=== PATIENT | male | born 1970 | race Caucasian/White ===

== ENCOUNTER → 2018-01-08 | Outpatient (CLI) | payer MEDICARE | END | disposition home or self-care (01) | LOC: KCIC 09:28 | DX: J45.909 Unspecified asthma, uncomplicated (principal) | CPT/HCPCS: 71046 ==

== ENCOUNTER → 2018-04-10 | Outpatient (CLI) | payer MEDICARE | END | disposition home or self-care (01) | LOC: KCIC 09:27 | DX: M25.551 Pain in right hip (principal); J45.909 Unspecified asthma, uncomplicated | CPT/HCPCS: 73502 ==

== ENCOUNTER 2019-01-30 18:42 | Emergency (ER) | payer MEDICARE ==
[~2019-01-30] VITALS: Ht 177.8 cm; Wt 143.8 kg
[2019-01-30] MEDS ORDERED: IV NORMAL SALINE 1000ML BAG 1,000 ML IV ONE (19:15)
[2019-01-30] MEDS ORDERED: ATROVENT HFA12.9 GM IH (19:44)
[2019-01-30 19:45] LABS: BASO # 0.1 x10^3/uL (0.0-0.2); BASO % 1 % (0-3); EOS # 0.1 x10^3/uL (0.0-0.7); EOS % 1 % (0-3); HEMATOCRIT 38.8 % (39.0-53.0); HEMOGLOBIN 13.1 g/dL (13.0-17.5); LYMPH # 1.8 x10^3/uL (1.0-4.8); LYMPH % 21 % (24-48); MEAN CORPUSCULAR HEMOGLOBIN 31 pg (25-35); MEAN CORPUSCULAR HGB CONC 34 g/dL (31-37); MEAN CORPUSCULAR VOLUME 92 fL (79-100); MONO # 0.7 x10^3/uL (0.0-1.1); MONO % 9 % (0-9); NEUT # 6.1 x10^3uL (1.8-7.7); NEUT % 69 % (31-73); PLATELET COUNT 283 x10^3/uL (140-400); RED BLOOD COUNT 4.22 x10^6/uL (4.30-5.70); RED CELL DISTRIBUTION WIDTH 13.8 % (11.5-14.5); WHITE BLOOD COUNT 8.8 x10^3/uL (4.0-11.0)
[2019-01-30 19:54] LABS: ANION GAP 12 (6-14); BLOOD UREA NITROGEN 21 mg/dL (8-26); BUN/CREATININE RATIO 6 (6-20); CALCIUM 9.2 mg/dL (8.5-10.1); CARBON DIOXIDE 27 mmol/L (21-32); CHLORIDE 101 mmol/L (98-107); CREATININE 3.6 mg/dL (0.7-1.3); GFR 18.3; GLUCOSE 113 mg/dL (70-99); POTASSIUM 3.5 mmol/L (3.5-5.1); SODIUM 140 mmol/L (136-145)
[2019-01-30 20:00] LABS: ALBUMIN 3.7 g/dL (3.4-5.0); ALBUMIN/GLOBULIN RATIO 0.9 (1.0-1.7); ALK PHOS 126 U/L (46-116); ALT (SGPT) 11 U/L (16-63); AST (SGOT) 19 U/L (15-37); MAGNESIUM 2.3 mg/dL (1.8-2.4); TOTAL BILIRUBIN 0.4 mg/dL (0.2-1.0); TOTAL PROTEIN 7.9 g/dL (6.4-8.2)
[2019-01-30 20:01] LABS: CARBAM < 0.5 mcg/mL (4.0-12.0)
--- NOTE | 2019-01-30 20:17 | RAD ---
EXAM: CT Head without IV contrast CLINICAL HISTORY: tremors,Weakness COMPARISON: None. TECHNIQUE: Routine CT of the head without contrast. Soft tissues and bone windows were reviewed. PQRS compliance statement - One or more of the following individualized dose reduction techniques were utilized for this study: 1. Automated exposure control 2. Adjustment of the mA and/or kV according to patient size 3. Use of iterative reconstruction technique FINDINGS: There is no evidence of hemorrhage, mass or extra-axial fluid collection. Douglas-white differentiation is maintained with no evidence of edema. There is no mass effect or shift of the intracranial structures. The ventricles, basilar cisterns and cortical sulci are normal in size and configuration for the patients stated age. The cerebellum and brainstem are unremarkable. The calvarium demonstrates no evidence of fracture or focal lesion. The mastoid air cells are clear. Diffuse opacification of the right maxillary sinus. The visualized portions of the orbits are normal. IMPRESSION: 1. No evidence for acute intracranial process. 2. Diffuse opacification of the right maxillary sinus, likely sinusitis. Electronically signed by: Levy Murillo MD (01/30/2019 8:14 PM) [email or web address]
--- NOTE | 2019-01-30 20:22 | PHYS DOC ---
Past Medical History Past Medical History: COPD, Diabetes-Type II, Hypertension, Seizure, Other Past Surgical History: No Surgical History Alcohol Use: None Drug Use: None Adult General Chief Complaint Chief Complaint: TREMORS HPI HPI Patient is a 48 year old [f__sex] who presents with [] Review of Systems Review of Systems Constitutional: Denies fever or chills [] Eyes: Denies change in visual acuity, redness, or eye pain [] HENT: Denies nasal congestion or sore throat [] Respiratory: Denies cough or shortness of breath [] Cardiovascular: No additional information not addressed in HPI [] GI: Denies abdominal pain, nausea, vomiting, bloody stools or diarrhea [] : Denies dysuria or hematuria [] Musculoskeletal: Denies back pain or joint pain [] Integument: Denies rash or skin lesions [] Neurologic: Denies headache, focal weakness or sensory changes [] Endocrine: Denies polyuria or polydipsia [] All other systems were reviewed and found to be within normal limits, except as documented in this note. Current Medications Current Medications Current Medications Medications (Trade) Dose Ordered Sig/Aaron Start Time Stop Time Status Last Admin Dose Admin Lorazepam (Ativan Inj) 0.5 mg 1X ONCE 01/30/19 21:15 01/30/19 21:16 DC 01/30/19 21:22 0.5 MG Lorazepam (Ativan) 0.5 mg 1X ONCE 01/30/19 23:00 01/30/19 23:01 DC 01/30/19 23:39 0.5 MG Sodium Chloride 1,000 ml @ 1,000 mls/hr 1X ONCE 01/30/19 19:15 01/30/19 20:14 DC 01/30/19 19:15 1,000 MLS/HR Allergies Allergies Allergies Coded Allergies Type Severity Reaction Last Updated Verified No Known Drug Allergies 01/30/19 No Physical Exam Physical Exam Constitutional: Well developed, well nourished, no acute distress, non-toxic appearance. [] HENT: Normocephalic, atraumatic, bilateral external ears normal, oropharynx moist, no oral exudates, nose normal. [] Eyes: PERRLA, EOMI, conjunctiva normal, no discharge. [] Neck: Normal range of motion, no tenderness, supple, no stridor. [] Cardiovascular:Heart rate regular rhythm, no murmur [] Lungs & Thorax: Bilateral breath sounds clear to auscultation [] Abdomen: Bowel sounds normal, soft, no tenderness, no masses, no pulsatile masses. [] Skin: Warm, dry, no erythema, no rash. [] Back: No tenderness, no CVA tenderness. [] Extremities: No tenderness, no cyanosis, no clubbing, ROM intact, no edema. [] Neurologic: Alert and oriented X 3, normal motor function, normal sensory function, no focal deficits noted. [] Psychologic: Affect normal, judgement normal, mood normal. [] Current Patient Data Vital Signs Vital Signs Date Time Temp Pulse Resp B/P (MAP) Pulse Ox O2 Delivery O2 Flow Rate FiO2 01/30/19 23:07 106 189/96 (127) 96 Room Air 01/30/19 22:30 18 01/30/19 21:00 98.2 98.2 Lab Values Laboratory Tests Test 01/30/19 19:05 01/30/19 21:20 White Blood Count 8.8 x10^3/uL (4.0-11.0) Red Blood Count 4.22 x10^6/uL (4.30-5.70) L Hemoglobin 13.1 g/dL (13.0-17.5) Hematocrit 38.8 % (39.0-53.0) L Mean Corpuscular Volume 92 fL (79-100) Mean Corpuscular Hemoglobin 31 pg (25-35) Mean Corpuscular Hemoglobin Concent 34 g/dL (31-37) Red Cell Distribution Width 13.8 % (11.5-14.5) Platelet Count 283 x10^3/uL (140-400) Neutrophils (%) (Auto) 69 % (31-73) Lymphocytes (%) (Auto) 21 % (24-48) L Monocytes (%) (Auto) 9 % (0-9) Eosinophils (%) (Auto) 1 % (0-3) Basophils (%) (Auto) 1 % (0-3) Neutrophils # (Auto) 6.1 x10^3uL (1.8-7.7) Lymphocytes # (Auto) 1.8 x10^3/uL (1.0-4.8) Monocytes # (Auto) 0.7 x10^3/uL (0.0-1.1) Eosinophils # (Auto) 0.1 x10^3/uL (0.0-0.7) Basophils # (Auto) 0.1 x10^3/uL (0.0-0.2) Sodium Level 140 mmol/L (136-145) Potassium Level 3.5 mmol/L (3.5-5.1) Chloride Level 101 mmol/L (98-107) Carbon Dioxide Level 27 mmol/L (21-32) Anion Gap 12 (6-14) Blood Urea Nitrogen 21 mg/dL (8-26) Creatinine 3.6 mg/dL (0.7-1.3) H Estimated GFR (Cockcroft-Gault) 18.3 BUN/Creatinine Ratio 6 (6-20) Glucose Level 113 mg/dL (70-99) H Lactic Acid Level 3.4 mmol/L (0.4-2.0) H Calcium Level 9.2 mg/dL (8.5-10.1) Magnesium Level 2.3 mg/dL (1.8-2.4) Total Bilirubin 0.4 mg/dL (0.2-1.0) Aspartate Amino Transferase (AST) 19 U/L (15-37) Alanine Aminotransferase (ALT) 11 U/L (16-63) L Alkaline Phosphatase 126 U/L (46-116) H Creatine Kinase 386 U/L (39-308) H Creatine Kinase MB (Mass) 2.0 ng/mL (0.0-3.6) Creatine Kinase MB Relative Index 0.5 % (0-4) Troponin I Quantitative < 0.017 ng/mL (0.000-0.055) Total Protein 7.9 g/dL (6.4-8.2) Albumin 3.7 g/dL (3.4-5.0) Albumin/Globulin Ratio 0.9 (1.0-1.7) L Carbamazepine (Tegretol) Level < 0.5 mcg/mL (4.0-12.0) L Carbamazepine Last Dose Date Unknown Carbamazepine Last Dose Time Unknown Urine Collection Type Unknown Urine Color [place] Urine Clarity Clear Urine pH 5.0 Urine Specific [place] 1.025 Urine Protein 30 mg/dL (NEG-TRACE) Urine Glucose (UA) Negative mg/dL (NEG) Urine Ketones (Stick) Trace mg/dL (NEG) Urine Blood Negative (NEG) Urine Nitrite Negative (NEG) Urine Bilirubin Small (NEG) Urine Urobilinogen Dipstick 0.2 mg/dL (0.2 mg/dL) Urine Leukocyte Esterase Negative (NEG) Urine RBC Occ /HPF (0-2) Urine WBC 1-4 /HPF (0-4) Urine Transitional Epithelial Cells Occ /LPF Urine Amorphous Sediment Present /HPF Urine Bacteria Few /HPF (0-FEW) Urine Hyaline Casts Many /HPF Urine Mucus Marked /LPF Laboratory Tests 01/30/19 19:05 Laboratory Tests 01/30/19 19:05 EKG EKG @1931 Sinus tachycardia at 114bpm, baseline artifact noted, NO ST elevation Radiology/Procedures Radiology/Procedures PROCEDURE: CT HEAD WO CONTRAST EXAM: CT Head without IV contrast CLINICAL HISTORY: tremors,Weakness COMPARISON: None. TECHNIQUE: Routine CT of the head without contrast. Soft tissues and bone windows were reviewed. PQRS compliance statement - One or more of the following individualized dose reduction techniques were utilized for this study: 1. Automated exposure control 2. Adjustment of the mA and/or kV according to patient size 3. Use of iterative reconstruction technique FINDINGS: There is no evidence of hemorrhage, mass or extra-axial fluid collection. Douglas-white differentiation is maintained with no evidence of edema. There is no mass effect or shift of the intracranial structures. The ventricles, basilar cisterns and cortical sulci are normal in size and configuration for the patients stated age. The cerebellum and brainstem are unremarkable. The calvarium demonstrates no evidence of fracture or focal lesion. The mastoid air cells are clear. Diffuse opacification of the right maxillary sinus. The visualized portions of the orbits are normal. IMPRESSION: 1. No evidence for acute intracranial process. 2. Diffuse opacification of the right maxillary sinus, likely sinusitis. Electronically signed by: Levy Murillo MD (01/30/2019 8:14 PM) [facility] Course & Med Decision Making Course & Med Decision Making Pertinent Labs and Imaging studies reviewed. (See chart for details) [] Dragon Disclaimer Dragon Disclaimer This electronic medical record was generated, in whole or in part, using a voice recognition dictation system. Departure Departure Impression: Primary Impression: Tremor Disposition: 01 HOME, SELF-CARE Condition: IMPROVED Referrals: UNKNOWN PCP NAME (PCP) Patient Instructions: Parkinson's Disease, [id number], Tremor Additional Instructions: Please follow up closely with your neurologist for re-evaluation. Scripts Lorazepam (ATIVAN) 0.5 Mg Tablet 0.5 MG PO TID PRN for TREMORS, #20 TAB Prov: LEVI LU DO 01/30/19 LEVI LU DO January 30, 2019 20:22
[2019-01-30 21:32] LABS: BILIRUBIN,URINE SMALL (NEG); CLARITY,URINE CLEAR; COLOR,URINE AMBER; NITRITE,URINE NEGATIVE (NEG); PROTEIN,URINE 30 mg/dL (NEG-TRACE); UROBILINOGEN,URINE 0.2 mg/dL (0.2 mg/dL)
[2019-01-30 21:38] LABS: HYALINE CASTS, URINE MANY /HPF
[2019-01-30 21:40] LABS: AMORPHOUS SEDIMENT,UR PRESENT /HPF; BACTERIA,URINE FEW /HPF (0-FEW); RBC,URINE OCC /HPF (0-2)
[2019-01-30] MEDS ORDERED: LORA0.5T96 PO (22:37)
[2019-01-30] MEDS ORDERED: LORazepam 0.5 MG TABLET PO ONE (23:00)
[2019-01-30 23:07] VITALS: BP 189/96
--- NOTE | 2019-01-31 14:28 | EKG ---
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
== END 2019-01-30 23:48 | disposition home or self-care (01) ==
LOC: ER 18:42
DX: R25.1 Tremor, unspecified (principal); J44.9 Chronic obstructive pulmonary disease, unspecified; E11.9 Type 2 diabetes mellitus without complications; I10 Essential (primary) hypertension
CPT/HCPCS: 36415; 70450; 80053; 80156; 81001; 82553; 83605; 83735; 84484; 85025; 93005; 96374; 99285; J2060; J7030

== ENCOUNTER → 2021-05-09 | Outpatient (CLI) | payer MEDICARE ==
[~2021-05-09] MED LIST: ATROVENT HFA12.9 GM IH; LORA0.5T96 PO
--- NOTE | 2021-05-09 10:57 | KCIC ---
EXAM: Pelvis and right hip, 2 views. HISTORY: Pain. COMPARISON: 04/10/2018 FINDINGS: A frontal view of the pelvis and frog-leg view the right hip are obtained. There is no frac ture, dislocation or subluxation. There is degenerative change at the lumbosacral junction. There is slight decreased right femoral head-neck offset, a finding which can be seen with chronic hip impinge ment. IMPRESSION: No acute osseous finding. Slight decreased right femoral head neck offset, a finding whic h can be seen with chronic hip impingement. Electronically signed by: Jojo Núñez MD (05/09/2021 10:55 AM) [id number]
== END ==
LOC: KCIC 10:18
PROVIDERS: ATTEND Family Medicine
DX: M25.551 Pain in right hip (principal); M47.817 Spondylosis without myelopathy or radiculopathy, lumbosacral region
CPT/HCPCS: 73501

== ENCOUNTER 2021-08-20 20:20 | Emergency (ER) | payer MEDICARE ==
[~2021-08-20] VITALS: Ht 177.8 cm; Wt 163.6 kg
--- NOTE | 2021-08-20 23:47 | PHYS DOC ---
Past Medical History Past Medical History: COPD, Diabetes-Type II, Hypertension, Seizure, Other Past Surgical History: No Surgical History Smoking Status: Never Smoker Alcohol Use: None Drug Use: None General Adult EDM: Chief Complaint: DIZZY/LIGHT HEADED HPI: HPI: Patient is a 51 year old male who reports dizziness which began at 6 PM. He describes both lightheadedness as well as some sense of motion. He reports that his hearing is "funny." He has some chronic hearing loss at baseline. Denies tinnitus. He denies fall or head injury. He denies headache. He denies numbness or tingling or focal motor weakness. He has chronic motor weakness and tremors secondary to Parkinson disease. No acute changes reported today. He denies chest pain, abdominal pain, nausea or vomiting. He does report some mild dyspnea and dry cough, which also began today. He denies fevers or chills. He denies hemoptysis. Denies dyspnea on exertion. Chronic lower extremity edema, unchanged today. Denies recent travel, surgery or hospitalization. He has been fully vaccinated against Covid. He reports that he is anxious but possibly having Covid. Review of Systems: Review of Systems: Constitutional: Denies fever or chills. [] Eyes: Denies acute change in visual acuity. Chronically poor vision. HENT: Denies nasal congestion or sore throat. [] Respiratory: Reports dyspnea and mild dry cough. Cardiovascular: Denies chest pain. Bilateral lower extremity edema reported. GI: Denies abdominal pain, nausea, vomiting Musculoskeletal: Denies back pain or joint pain. [] Integument: Denies rash. [] Neurologic: Denies headache, focal weakness or sensory changes. Chronic tremor and unsteadiness secondary to Parkinson disease. Psychiatric: Denies depression or anxiety. [] Heart Score: C/O Chest Pain: No Risk Factors: Risk Factors: DM, Current or recent (<one month) smoker, HTN, HLP, family history of CAD, obesity. Risk Scores: Score 0 - 3: 2.5% MACE over next 6 weeks - Discharge Home Score 4 - 6: 20.3% MACE over next 6 weeks - Admit for Clinical Observation Score 7 - 10: 72.7% MACE over next 6 weeks - Early Invasive Strategies Allergies: Allergies: Allergies Coded Allergies Type Severity Reaction Last Updated Verified No Known Drug Allergies 01/30/19 No Physical Exam: PE: Constitutional: Well developed, well nourished, no acute distress, non-toxic appearance. Chronically ill-appearing. Appears older than stated age HENT: Normocephalic, atraumatic, bilateral external ears normal, oropharynx mois t, no oral exudates, nose normal. TMs are clear bilaterally. Eyes: PERRL, EOMI, conjunctiva normal, no discharge. No nystagmus. Neck: Normal range of motion, no tenderness, supple, no stridor. Trachea midline. Cardiovascular: Tachycardic, rate in the low 100s, regular, +2 posterior tibial and +2 radial pulses bilaterally. Lungs & Thorax: Bilateral breath sounds clear to auscultation, no rales, rhonchi or wheezing. No stridor. No distress. Abdomen: Abdomen soft, nondistended, nontender to palpation. Skin: Warm, dry, no erythema. There is some mild venous stasis skin changes on his lower extremities. Back: No formally. Extremities: No tenderness, no cyanosis, no clubbing, ROM intact. Bilateral lower extremity 1+ pitting edema. No calf tenderness. No limb deformity. Neurologic: Alert and oriented X 3, normal motor function, normal sensory function, no focal deficits noted. Cranial nerves II through XII grossly intact. Speech is clear and fluent. 5 out of 5 motor strength all 4 extremities. No limb ataxia. There is a subtle baseline tremor, worse on the upper extremities. Psychologic: Affect normal, judgement normal, mood normal. [] EKG: EKG: EKG is interpreted at 0003 Rhythm is sinus Rate is 100 bpm Low voltage Marked artifact No STEMI Radiology/Procedures: Radiology/Procedures: IMAGING REPORT Signed PATIENT: JOSE ROBERTO PANIAGUA ACCOUNT: [id number] : 1970 LOCATION: ER AGE: 51 SEX: M EXAM STATUS: REG ER ORD. PHYSICIAN: VICTOR HUGO COON DO REASON: dizziness PROCEDURE: CT HEAD WO CONTRAST CT HEAD/BRAIN WO Date: 08/21/2021 12:49 AM Clinical Indication: dizziness Comparison: None. Technique: 5 mm axial tomographic images were obtained of the head without contrast. These were viewed on brain and bone windows. One or more of the following dose reduction techniques were utilized: Automated exposure control (AEC), Adjustment of mA and/or kV according to patient size, Use of iterative reconstruction technique such as ASiR, CT scan done according to ALARA and image gently/image wisely Findings: The brain parenchyma is normal in attenuation. No intra- or extra-axial mass or fluid collection. No acute hemorrhage. The ventricles are normal in size, shape, and morphology. The bansal-white matter junction is normal. The subarachnoid cisterns are patent. Opacification of the right maxillary sinus, which is small in caliber with inward bowing of the last consistent with atelectasis. The visualized portions of the orbits and globes are normal. The mastoid air cells are clear. The sales support administrator topogram shows no lytic lesion or fracture. Impression: 1. No acute intracranial process. 2. Right maxillary sinus chronic atelectasis. Electronically signed by: Erica Johnson MD (08/21/2021 1:08 AM) [facility] DICTATED and SIGNED BY: ERICA JOHNSON MD DATE: 08/21/[id number] 0 IMAGING REPORT Signed PATIENT: JOSE ROBERTO PANIAGUA ACCOUNT: [id number] : 1970 LOCATION: ER AGE: 51 SEX: M EXAM STATUS: REG ER ORD. PHYSICIAN: VICTOR HUGO COON DO REASON: dyspnea PROCEDURE: PORTABLE CHEST 1V XR CHEST 1V INDICATION: dyspnea COMPARISON STUDY: 01/08/2018. FINDINGS: Lungs: Normal lung volume. No pulmonary mass or consolidation. Prominent mediastinal fat. Pleura: No pleural effusion or pneumothorax. Heart and Mediastinum: Cardiomegaly. The great vessels of the thorax are normal. IMPRESSION: No acute cardiopulmonary process. Electronically signed by: Erica Johnson MD (08/21/2021 1:14 AM) [facility] DICTATED and SIGNED BY: ERICA JOHNSON MD DATE: 08/21/21 [id number] Course & Med Decision Making: Course & Med Decision Making Pertinent Labs and Imaging studies reviewed. (See chart for details) The findings, differential diagnosis and plan of care discussed with the patient. Emergency department work-up is unremarkable for any acute life- threatening process. No current indication for further invasive exams, imaging or admission at this time, based on current clinical presentation. He manifests no evidence of respiratory distress or hypoxia. He feels comfortable with plan for discharge home. I told him to follow-up with his neurologist, Dr. Vargas at his schedule appointment later this month. He is to follow-up with his primary care physician as well. He denies any active vertigo or dizziness at present, he is able to get up and move around the emergency department, without difficulty. Dyspnea has resolved as well. Strict return precautions are given. Dragon Disclaimer: Dragon Disclaimer: This electronic medical record was generated, in whole or in part, using a voice recognition dictation system. Departure Departure Impression: Primary Impression: Dizziness Additional Impressions: Parkinson disease Dyspnea Disposition: HOME / SELF CARE / HOMELESS Condition: STABLE Referrals: ALEYDA DELAROSA MD (PCP) Patient Instructions: Dizziness, Shortness of Breath Additional Instructions: Return to the ER for severe headache, fall, head injury, numbness, tingling, focal or new motor weakness, chest pain, more severe shortness of breath, vomiting, dehydration, temperature 100.4 or higher or for any other concerns. Use the medication as prescribed/as needed for dizziness symptoms. Please keep your appointment with Dr. Vargas on the of this month, as scheduled. Also follow-up with your primary care physician. Scripts Meclizine Hcl (MECLIZINE HCL) 25 Mg Tablet 25 MG PO PRN TID PRN for dizziness or vertigo, #20 TAB dizziness Prov: VICTOR HUGO COON DO 08/21/21 VICTOR HUGO COON DO Aug 20, 2021 23:47
[2021-08-21 00:19] LABS: BASO # 0.1 x10^3/uL (0.0-0.2); BASO % 1 % (0-3); EOS % 1 % (0-3); HEMATOCRIT 37.2 % (39.0-53.0); HEMOGLOBIN 12.2 g/dL (13.0-17.5); LYMPH # 1.9 x10^3/uL (1.0-4.8); LYMPH % 25 % (24-48); MEAN CORPUSCULAR HEMOGLOBIN 31 pg (25-35); MEAN CORPUSCULAR HGB CONC 33 g/dL (31-37); MEAN CORPUSCULAR VOLUME 93 fL (79-100); MONO # 0.8 x10^3/uL (0.0-1.1); MONO % 10 % (0-9); NEUT % 64 % (31-73); PLATELET COUNT 231 x10^3/uL (140-400); RED CELL DISTRIBUTION WIDTH 14.2 % (11.5-14.5); WHITE BLOOD COUNT 7.8 x10^3/uL (4.0-11.0)
[2021-08-21 00:32] LABS: CALCIUM 8.3 mg/dL (8.5-10.1); CREATININE 2.8 mg/dL (0.7-1.3); GFR 24.2; POTASSIUM 3.8 mmol/L (3.5-5.1)
[2021-08-21 00:38] LABS: ALBUMIN 3.5 g/dL (3.4-5.0); ALBUMIN/GLOBULIN RATIO 0.8 (1.0-1.7); MAGNESIUM 2.4 mg/dL (1.8-2.4); PHOSPHORUS 4.6 mg/dL (2.6-4.7); TOTAL BILIRUBIN 0.4 mg/dL (0.2-1.0); TOTAL PROTEIN 7.7 g/dL (6.4-8.2)
--- NOTE | 2021-08-21 01:11 | RAD ---
CT HEAD/BRAIN WO Date: 08/21/2021 12:49 AM Clinical Indication: dizziness Comparison: None. Technique: 5 mm axial tomographic images were obtained of the head without contrast. These were view ed on brain and bone windows. One or more of the following dose reduction techniques were utilized: A utomated exposure control (AEC), Adjustment of mA and/or kV according to patient size, Use of iterati ve reconstruction technique such as ASiR, CT scan done according to ALARA and image gently/image cruz ly Findings: The brain parenchyma is normal in attenuation. No intra- or extra-axial mass or fluid collection. No acute hemorrhage. The ventricles are normal in size, shape, and morphology. The bansal-white matter david ction is normal. The subarachnoid cisterns are patent. Opacification of the right maxillary sinus, which is small in caliber with inward bowing of the last consistent with atelectasis. The visualized portions of the orbits and globes are normal. The masto id air cells are clear. The vice president integrated topogram shows no lytic lesion or fracture. Impression: 1. No acute intracranial process. 2. Right maxillary sinus chronic atelectasis. Electronically signed by: Khurram Johnson MD (08/21/2021 1:08 AM) [facility]
--- NOTE | 2021-08-21 01:16 | RAD ---
XR CHEST 1V INDICATION: dyspnea COMPARISON STUDY: 01/08/2018. FINDINGS: Lungs: Normal lung volume. No pulmonary mass or consolidation. Prominent mediastinal fat. Pleura: No pleural effusion or pneumothorax. Heart and Mediastinum: Cardiomegaly. The great vessels of the thorax are normal. IMPRESSION: No acute cardiopulmonary process. Electronically signed by: Khurram Johnson MD (08/21/2021 1:14 AM) [facility]
--- NOTE | 2021-08-21 02:56 | EKG ---
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
[2021-08-21 03:00] VITALS: BP 96/61
[2021-08-21] MEDS ORDERED: MECL-75 PO (03:01)
--- NOTE | 2021-08-21 16:03 | NUR ---
IP: Attempted to contact pt concerning covid results. No answer, left a voicemail to return the call.
--- NOTE | 2021-08-22 15:43 | NUR ---
IP: Attempted a second time to contact pt concerning covid test. No answer, left a second voicemail to return the call
== END 2021-08-21 03:09 | disposition home or self-care (01) ==
LOC: ER 20:20
DX: R42 Dizziness and giddiness (principal); R06.00 Dyspnea, unspecified; G20 Parkinson's disease; R05.9 Cough, unspecified; Z20.822 Contact with and (suspected) exposure to COVID-19; J44.9 Chronic obstructive pulmonary disease, unspecified; E11.9 Type 2 diabetes mellitus without complications; I10 Essential (primary) hypertension
CPT/HCPCS: 36415; 70450; 71045; 80053; 82550; 83735; 83880; 84100; 84484; 85025; 85379; 87426; 93005; 99285; U0003; U0005

== ENCOUNTER → 2021-10-16 | Outpatient (CLI) | payer MEDICARE ==
[~2021-10-16] MED LIST changes: +MECL-75 PO
--- NOTE | 2021-10-16 11:11 | KCIC ---
EXAM: Brain MRI without contrast. HISTORY: Slurred speech. Fatigue. Weakness. Dizziness. TECHNIQUE: Multiplanar, multisequence magnetic resonance imaging of the brain was performed without c ontrast. COMPARISON: CT dated 08/21/2021. FINDINGS: There is no restricted diffusion to suggest acute or subacute infarction. There is no susce ptibility effect to suggest hemorrhage. There is no mass effect or midline shift. There is no hydroce phalus. There is a tiny focus of signal change within the left frontal white matter. There is decreased right maxillary sinus size due to hypoplasia or chronic sinusitis. There is near complete opacification of the right maxillary sinus due to fluid and mucosal thickening. The mastoid air cells are clear. There are normal flow voids within the cerebral vessels. There is no suspicious calvarial lesion. IMPRESSION: 1. No acute intercranial finding. 2. Tiny focus of signal change within the left frontal white matter. The differential includes change s due to chronic small vessel disease as well as chronic migraine headaches. The imaging appearance d oes not favor changes due to demyelinating disease. 3. Right maxillary sinus disease. Electronically signed by: Jojo Núñez MD (10/16/2021 11:09 AM) [id number]
== END ==
LOC: KCIC MRI 09:39
PROVIDERS: ATTEND Nurse Practitioner Family
DX: J32.0 Chronic maxillary sinusitis (principal); R90.82 White matter disease, unspecified; R47.81 Slurred speech; R53.1 Weakness; R53.83 Other fatigue; R42 Dizziness and giddiness
CPT/HCPCS: 70551